=== PATIENT | female | born 1960 | race African-American/Black ===

== ENCOUNTER 2021-03-17 15:24 | Emergency (ER) | payer OTHER ==
[2021-03-17 15:43] VITALS: BP 168/79; PULSE 75; TEMP 97.3; BMI 32.8
== END 2021-03-17 16:47 | disposition home or self-care (01) ==
LOC: JER 15:24 → JERFT 15:24
DX: R04.0 Epistaxis (principal)
CPT/HCPCS: 99283-25

== ENCOUNTER 2021-03-28 07:22 | Day surgery (SDC) | payer OTHER ==
[2021-03-22 11:45] VITALS: BMI 32.8
[2021-03-28] MEDS ORDERED: LIDOCAINE HCL/PF 2% SDV 5ML VIAL ONE (07:50)
[2021-03-28] MEDS ORDERED: PROPOFOL 20 ML ONE ×3 (07:51)
[2021-03-28 08:56] VITALS: BP 130/80; PULSE 81; TEMP 98.2
== END 2021-03-28 09:13 | disposition home or self-care (01) ==
LOC: FASU-ENDO 07:22
PROVIDERS: ATTEND Internal Medicine Gastroenterology
PROC: 0DJD8ZZ Inspection of Lower Intestinal Tract, Via Natural or Artificial Opening Endoscopic (ICD-10-PCS; principal; 2021-03-28 08:00)
DX: Z12.11 Encounter for screening for malignant neoplasm of colon (principal); Z80.0 Family history of malignant neoplasm of digestive organs; K57.30 Diverticulosis of large intestine without perforation or abscess without bleeding; K64.0 First degree hemorrhoids